=== PATIENT | male | born 1980 | race Caucasian/White ===

== ENCOUNTER 2022-07-04 23:24 | Emergency (ER) | payer OTHER ==
[~2022-07-04] VITALS: Ht 180.3 cm; Wt 68.0 kg
[2022-07-05] MEDS ORDERED: NALO4SPR BNOSTRILS (00:14)
--- NOTE | 2022-07-05 00:45 | NUR ---
Patient discharged to home in stable condition. A/o x 3. NAD noted. Ambulatory with a steady gait. All belongings with patient. Written and verbal after care instructions given. Patient verbalizes understanding of instructions. Stressed follow up or return to ER for worsening s/s.
[2022-07-05 00:48] VITALS: BP 114/66
== END 2022-07-05 00:45 | disposition home or self-care (01) ==
LOC: ER 23:40
DX: T40.411A Poisoning by fentanyl or fentanyl analogs, accidental (unintentional), initial encounter (principal); Z79.899 Other long term (current) drug therapy; Y92.89 Other specified places as the place of occurrence of the external cause
CPT/HCPCS: A4663